=== PATIENT | male | born 1955 | race Two or more races ===

== ENCOUNTER 2017-10-06 15:30 | Emergency (ER) | payer OTHER ==
[~2017-10-06] VITALS: Ht 170.2 cm; Wt 81.6 kg
[2017-10-06] MEDS ORDERED: ASPirin 81 mg TAB PO ONE (17:30)
[2017-10-06 18:43] LABS: Basophils # (auto) 0.1 uL; Basophils % (auto) 1.2 % (0.0-2.0); Eosinophils # (auto) 0.6 uL; Eosinophils % (auto) 6.5 % (0.0-7.0); Hematocrit 46.7 % (41.0-53.0); Hemoglobin 16.2 g/dL (13.5-17.5); Lymphocytes # (auto) 2.8 uL; Lymphocytes % (auto) 29.9 % (10.0-50.0); Mean Corpuscular Hemoglobin 32.9 pg (28.0-32.0); Mean Corpuscular Hgb Conc. 34.7 g/dL (32.0-36.0); Mean Corpuscular Volume 94.7 fL (80.0-100.0); Monocytes # (auto) 0.6 uL; Monocytes % (auto) 6.2 % (0.0-12.0); Neutrophils # (auto) 5.3 uL; Neutrophils % (auto) 56.2 % (37.0-80.0); Nucleated Red Blood Cells % 0.1 %; Platelet Count (auto) 157 10^3/uL (140-450); Red Blood Cells 4.93 10^6/uL (4.5-5.90); Red Cell Distribution Width 13.8 % (11.8-14.3); White Blood Cell 9.4 10^3/uL (4.4-10.8)
[2017-10-06 18:58] LABS: Alanine Aminotransferase 131 U/L (16-61); Albumin 4.2 g/dL (3.4-5.0); Alkaline Phosphatase 61 U/L (45-117); Anion Gap 11 (5-15); Aspartate Aminotransferase 64 U/L (15-37); BUN/Creatinine Ratio 21.6; Bilirubin, Total 0.8 mg/dL (0.2-1.0); Blood Urea Nitrogen 16 mg/dL (7-18); Calcium 9.2 mg/dL (8.5-10.1); Carbon Dioxide 22 mmol/L (21-32); Chloride 105 mmol/L (98-107); GFR African American 138 mL/min; GFR Non-African American 114 mL/min; Glucose 86 mg/dL (74-106); Magnesium 2.6 mg/dL (1.6-2.6); Potassium 3.9 mmol/L (3.5-5.1); Sodium 138 mmol/L (136-145); Total Protein 8.7 g/dL (6.4-8.2)
[2017-10-06 19:31] VITALS: BP 173/107
== END 2017-10-06 20:17 | disposition home or self-care (01) ==
LOC: ER 15:30
DX: R07.89 Other chest pain (principal); R42 Dizziness and giddiness; I10 Essential (primary) hypertension; F17.210 Nicotine dependence, cigarettes, uncomplicated; Z79.82 Long term (current) use of aspirin
CPT/HCPCS: 36415; 71045; 80053; 83735; 83880; 84484; 85025; 93005; 94761

== ENCOUNTER 2017-11-08 14:58 | Emergency (ER) | payer OTHER ==
[~2017-11-08] VITALS: Ht 170.2 cm; Wt 89.4 kg
[2017-11-08 15:46] LABS: Basophils # (auto) 0.1 uL; Basophils % (auto) 1.7 % (0.0-2.0); Eosinophils # (auto) 0.5 uL; Eosinophils % (auto) 6.1 % (0.0-7.0); Hematocrit 44.1 % (41.0-53.0); Hemoglobin 15.3 g/dL (13.5-17.5); Lymphocytes # (auto) 2.6 uL; Lymphocytes % (auto) 32.9 % (10.0-50.0); Mean Corpuscular Hemoglobin 32.6 pg (28.0-32.0); Mean Corpuscular Hgb Conc. 34.6 g/dL (32.0-36.0); Mean Corpuscular Volume 94.2 fL (80.0-100.0); Monocytes # (auto) 0.6 uL; Neutrophils # (auto) 4.1 uL; Neutrophils % (auto) 51.3 % (37.0-80.0); Nucleated Red Blood Cells % 0.2 %; Platelet Count (auto) 149 10^3/uL (140-450); Red Blood Cells 4.68 10^6/uL (4.5-5.90); Red Cell Distribution Width 13.9 % (11.8-14.3)
[2017-11-08 16:05] LABS: Albumin 3.8 g/dL (3.4-5.0); BUN/Creatinine Ratio 13.8; Bilirubin, Total 0.7 mg/dL (0.2-1.0); Calcium 9.3 mg/dL (8.5-10.1); Potassium 3.8 mmol/L (3.5-5.1); Total Protein 8.1 g/dL (6.4-8.2)
[2017-11-08 16:21] LABS: Magnesium 2.5 mg/dL (1.6-2.6)
[2017-11-08 16:31] LABS: INR 1.01 (0.9-1.15); Partial Thromboplastin Time 27.8 sec (22.64-33.71)
[2017-11-08 17:57] VITALS: BP 139/85
== END 2017-11-08 19:17 | disposition home or self-care (01) ==
LOC: ER 15:01
DX: R94.5 Abnormal results of liver function studies (principal); I10 Essential (primary) hypertension; G89.29 Other chronic pain; M54.9 Dorsalgia, unspecified; F17.210 Nicotine dependence, cigarettes, uncomplicated; Z01.83 Encounter for blood typing
CPT/HCPCS: 36415; 80053; 82150; 83690; 83735; 85025; 85610; 85730

== ENCOUNTER 2017-12-24 17:36 | Emergency (ER) | payer OTHER, MEDICAID ==
[~2017-12-24] VITALS: Ht 170.2 cm; Wt 86.2 kg
[2017-12-24 17:52] VITALS: BP 130/70
[2017-12-24] MEDS ORDERED: IBUPROFEN 800 MG TAB PO ONE (19:15)
== END 2017-12-24 23:35 | disposition left against medical advice (07) ==
LOC: ER 17:37
DX: M79.674 Pain in right toe(s) (principal); Z53.21 Procedure and treatment not carried out due to patient leaving prior to being seen by health care provider
CPT/HCPCS: 73660

== ENCOUNTER 2019-02-01 15:16 | Emergency (ER) | payer OTHER, MEDICAID ==
[~2019-02-01] VITALS: Ht 170.2 cm; Wt 81.6 kg
[2019-02-01 15:29] VITALS: BP 174/82
[2019-02-01] MEDS ORDERED: BACITRACIN TOP OINT 1 UD PKG TOP ONE (19:45)
[2019-02-01] MEDS ORDERED: LIDOCAINE 1% HCL (LOCAL ANESTH.) INJ 20ML MDV IJ ONE (19:45)
[2019-02-01] MEDS ORDERED: TETANUS-DIPTH-ACEL PERTUSSIS 0.5ML SYRG IM ONE (21:15)
[2019-02-01] MEDS ORDERED: ACETAMINOPHEN/CODEINE#3 (300/30mg) TAB PO ONE (21:15)
[2019-02-01] MEDS ORDERED: SODIUM BICARBONATE 8.4% INJ 50ML SYRINGE ONE ×2 (23:27→23:49)
[2019-02-01] MEDS ORDERED: THIAMINE 100mg/ml INJ (200mg/2ml VIAL) ONE (23:31)
== END 2019-02-01 21:28 | disposition home or self-care (01) ==
LOC: ER 15:21
DX: S61.011A Laceration without foreign body of right thumb without damage to nail, initial encounter (principal); I10 Essential (primary) hypertension; F17.210 Nicotine dependence, cigarettes, uncomplicated; W26.8XXA Contact with other sharp object(s), not elsewhere classified, initial encounter; Y93.89 Activity, other specified; Y92.89 Other specified places as the place of occurrence of the external cause; Y99.8 Other external cause status
CPT/HCPCS: 12001; 90471; 90715; 99283; J2001

== ENCOUNTER 2019-02-02 18:21 | Emergency (ER) | payer OTHER, MEDICAID ==
[~2019-02-02] VITALS: Ht 170.2 cm; Wt 81.6 kg
[2019-02-02 18:45] VITALS: BP 141/81
[2019-02-02] MEDS ORDERED: ACETAMINOPHEN/CODEINE#3 (300/30mg) TAB PO ONE (19:45)
== END 2019-02-02 20:36 | disposition home or self-care (01) ==
LOC: ER 18:21
DX: S62.524D Nondisplaced fracture of distal phalanx of right thumb, subsequent encounter for fracture with routine healing (principal); F17.210 Nicotine dependence, cigarettes, uncomplicated; X58.XXXD Exposure to other specified factors, subsequent encounter
CPT/HCPCS: 29130; 73140

== ENCOUNTER 2019-06-03 14:46 | Emergency (ER) | payer OTHER, MEDICAID ==
[~2019-06-03] VITALS: Ht 170.2 cm; Wt 88.5 kg
[2019-06-03 15:14] VITALS: BP 138/84
[2019-06-03] MEDS ORDERED: TETRACAINE HCL 0.5% OPTH(EYE) SOLN 4ML ONE (16:13)
[2019-06-03] MEDS ORDERED: TETRACAINE HCL 0.5% OPTH(EYE) SOLN 4ML EACHEYE ONE (16:15)
== END 2019-06-03 16:41 | disposition home or self-care (01) ==
LOC: ER 14:48
DX: T15.02XA Foreign body in cornea, left eye, initial encounter (principal); I10 Essential (primary) hypertension; F17.210 Nicotine dependence, cigarettes, uncomplicated; X58.XXXA Exposure to other specified factors, initial encounter; Y93.89 Activity, other specified; Y92.89 Other specified places as the place of occurrence of the external cause; Y99.8 Other external cause status
CPT/HCPCS: 65220

== ENCOUNTER 2022-07-10 07:34 | Emergency (ER) | payer OTHER, MEDICAID ==
[~2022-07-10] VITALS: Ht 170.2 cm; Wt 90.0 kg
[2022-07-10] MEDS ORDERED: SODIUM CHLORIDE 0.9% 1,000 ML IV ONE ×2 (08:00)
[2022-07-10] MEDS ORDERED: IPRATROPIUM BROM 0.5 MG/2.5ML INH SOL NEB ONE (08:00)
[2022-07-10] MEDS ORDERED: ALBUTEROL SULF 2.5 MG/0.5ML(0.5%) NEB SOLN NEB ONE (08:00)
[2022-07-10] MEDS ORDERED: methylPREDNISolone SOD SUCC 125 MG/2 ML VL IV ONE (08:00)
[2022-07-10 08:25] LABS: Basophils # (auto) 0 10 ^3/uL (0-0.2); Basophils % (auto) 0.5 % (0.0-2.0); Eosinophils # (auto) 1.2 10 ^3/uL (0-0.8); Eosinophils % (auto) 12.4 % (0.0-7.0); Hematocrit 49.5 % (41.0-53.0); Hemoglobin 16.6 g/dL (13.5-17.5); Lymphocytes % (auto) 20.9 % (10.0-50.0); Mean Corpuscular Hemoglobin 31.4 pg (28.0-32.0); Mean Corpuscular Hgb Conc. 33.5 g/dL (32.0-36.0); Mean Corpuscular Volume 93.8 fL (80.0-100.0); Monocytes # (auto) 0.6 10 ^3/uL (0-1.3); Monocytes % (auto) 6.6 % (0.0-12.0); Neutrophils # (auto) 5.6 10 ^3/uL (1.6-8.6); Neutrophils % (auto) 59.6 % (37.0-80.0); Red Blood Cells 5.28 10^6/uL (4.5-5.90); Red Cell Distribution Width 13.8 % (11.8-14.3); White Blood Cell 9.3 10^3/uL (4.4-10.8)
[2022-07-10 09:00] LABS: Albumin 4.1 g/dL (3.4-5.0); BUN/Creatinine Ratio 13.8; Bilirubin, Total 0.7 mg/dL (0.2-1.0); Calcium 9.5 mg/dL (8.5-10.1); Magnesium 2.4 mg/dL (1.6-2.6); Potassium 4.4 mmol/L (3.5-5.1)
[2022-07-10 10:50] VITALS: BP 151/79
[2022-07-10] MEDS ORDERED: DEXT1SYP9 PO ×2 (10:53→11:03)
[2022-07-10] MEDS ORDERED: PRED20TA2 PO ×2 (10:53→11:03)
[2022-07-10] MEDS ORDERED: AZIT500T PO ×2 (10:53→11:03)
[2022-07-10] MEDS ORDERED: ALBUAER3 IN (11:03)
== END 2022-07-10 11:15 | disposition home or self-care (01) ==
LOC: ER 07:34
DX: J44.1 Chronic obstructive pulmonary disease with (acute) exacerbation (principal); F17.210 Nicotine dependence, cigarettes, uncomplicated; E11.9 Type 2 diabetes mellitus without complications; I10 Essential (primary) hypertension
CPT/HCPCS: 36415; 71046; 80053; 83735; 85025; 93005; 94640; 96361; 96374; 99285; J2930; J7030; J7644

== ENCOUNTER 2023-06-24 13:04 | Emergency (ER) | payer OTHER, MEDICAID ==
[~2023-06-24] VITALS: Ht 170.2 cm; Wt 86.8 kg
[~2023-06-24 13:04] MED LIST: ALBUAER3 IN; AZIT500T PO; DEXT1SYP9 PO; PRED20TA2 PO
[2023-06-24 13:58] LABS: Basophils # (auto) 0 10 ^3/uL (0-0.2); Basophils % (auto) 0.6 % (0.0-2.0); Eosinophils # (auto) 0 10 ^3/uL (0-0.8); Eosinophils % (auto) 0.6 % (0.0-7.0); Hemoglobin 16.5 g/dL (13.5-17.5); Lymphocytes # (auto) 1.2 10 ^3/uL (0.4-5.4); Lymphocytes % (auto) 14.5 % (10.0-50.0); Mean Corpuscular Hemoglobin 32.8 pg (28.0-32.0); Mean Corpuscular Hgb Conc. 34.4 g/dL (32.0-36.0); Mean Corpuscular Volume 95.3 fL (80.0-100.0); Monocytes # (auto) 0.3 10 ^3/uL (0-1.3); Monocytes % (auto) 3.3 % (0.0-12.0); Neutrophils # (auto) 6.6 10 ^3/uL (1.6-8.6); Nucleated Red Blood Cells % 0.1 %; Red Blood Cells 5.03 10^6/uL (4.5-5.90); White Blood Cell 8.2 10^3/uL (4.4-10.8)
[2023-06-24 14:30] LABS: Urine Bacteria NONE SEEN /hpf (None Seen); Urine Blood Negative /uL (Negative); Urine Clarity Clear (Clear); Urine Color Colorless (Yellow); Urine Protein, UAD Negative (Negative); Urine Specific Gravity 1.021 (1.001-1.035); Urine Urobilinogen Normal (Negative); Urine WBC <1 /hpf (0 - 3)
[2023-06-24 14:34] LABS: Alanine Aminotransferase 53 U/L (7-40); Albumin 5.1 g/dL (3.2-4.8); Alkaline Phosphatase 57 U/L (46-116); Anion Gap 6 (5-15); Aspartate Aminotransferase 27 U/L (13-40); BUN/Creatinine Ratio 12.6 (10.0-20.0); Bilirubin, Total 0.6 mg/dL (0.2-1.0); Blood Urea Nitrogen 12 mg/dL (9-23); Calcium 10.2 mg/dL (8.7-10.4); Carbon Dioxide 25 mmol/L (20-30); Chloride 107 mmol/L (98-107); Glucose 114 mg/dL (74-106); Magnesium 2.3 mg/dL (1.6-2.6); Potassium 4.6 mmol/L (3.5-5.1); Sodium 138 mmol/L (136-145); Total Protein 8.1 g/dL (5.7-8.2)
[2023-06-24 18:18] VITALS: BP 161/83; PULSE 79; RESP 19; O2SAT 97
== END 2023-06-24 18:21 | disposition home or self-care (01) ==
LOC: ER 13:04
DX: R06.00 Dyspnea, unspecified (principal); I10 Essential (primary) hypertension; E11.9 Type 2 diabetes mellitus without complications; F17.210 Nicotine dependence, cigarettes, uncomplicated; Z98.890 Other specified postprocedural states
CPT/HCPCS: 36415; 71046; 80053; 81001; 83735; 83880; 84484; 85025; 85379; 93005

== ENCOUNTER 2023-07-09 08:02 | Emergency (ER) | payer OTHER, MEDICAID ==
[~2023-07-09] VITALS: Ht 170.2 cm; Wt 89.1 kg
[2023-07-09 08:45] VITALS: BP 158/90; PULSE 75
[2023-07-09] MEDS ORDERED: ALBUTEROL MEDNEB 2.5 mg/3ml NEB NEB ONE (09:15)
[2023-07-09] MEDS ORDERED: IPRATROPIUM BROM 0.5 MG/2.5ML INH SOL NEB ONE (09:15)
[2023-07-09 09:31] VITALS: RESP 18; O2SAT 96
[2023-07-09] MEDS ORDERED: LEVO500T91 PO (09:53)
[2023-07-09] MEDS ORDERED: PROM1SOL4 PO (09:53)
[2023-07-09] MEDS ORDERED: ALBU108A5 IN (09:53)
== END 2023-07-09 09:57 | disposition home or self-care (01) ==
LOC: ER 08:02
DX: J20.9 Acute bronchitis, unspecified (principal); E11.9 Type 2 diabetes mellitus without complications; I10 Essential (primary) hypertension; F17.210 Nicotine dependence, cigarettes, uncomplicated
CPT/HCPCS: 71045; 94640; 99283; J7644

== ENCOUNTER 2023-07-29 09:35 | Emergency (ER) | payer OTHER, MEDICAID ==
[~2023-07-29] VITALS: Ht 170.2 cm; Wt 89.3 kg
[~2023-07-29 09:35] MED LIST changes: +ALBU108A5 IN; +LEVO500T91 PO; +PROM1SOL4 PO
[2023-07-29 11:28] VITALS: BP 139/82; PULSE 74; RESP 18; TEMP 97.6; O2SAT 98
[2023-07-29] MEDS ORDERED: OMEP20TA85 PO (12:05)
== END 2023-07-29 12:17 | disposition home or self-care (01) ==
LOC: ER 09:35
DX: K21.9 Gastro-esophageal reflux disease without esophagitis (principal); E11.9 Type 2 diabetes mellitus without complications; I10 Essential (primary) hypertension; F17.210 Nicotine dependence, cigarettes, uncomplicated

== ENCOUNTER 2023-08-04 13:55 | Emergency (ER) | payer OTHER, MEDICAID ==
[~2023-08-04] VITALS: Ht 170.2 cm; Wt 89.7 kg
[~2023-08-04 13:55] MED LIST changes: +OMEP20TA85 PO
[2023-08-04 14:50] LABS: Basophils # (auto) 0.1 10 ^3/uL (0-0.2); Basophils % (auto) 0.8 % (0.0-2.0); Eosinophils # (auto) 0.7 10 ^3/uL (0-0.8); Eosinophils % (auto) 9.5 % (0.0-7.0); Hematocrit 47.5 % (41.0-53.0); Hemoglobin 16.3 g/dL (13.5-17.5); Lymphocytes # (auto) 2.3 10 ^3/uL (0.4-5.4); Lymphocytes % (auto) 31.8 % (10.0-50.0); Mean Corpuscular Hemoglobin 32.1 pg (28.0-32.0); Mean Corpuscular Hgb Conc. 34.2 g/dL (32.0-36.0); Mean Corpuscular Volume 93.7 fL (80.0-100.0); Monocytes # (auto) 0.5 10 ^3/uL (0-1.3); Monocytes % (auto) 7.4 % (0.0-12.0); Neutrophils # (auto) 3.7 10 ^3/uL (1.6-8.6); Neutrophils % (auto) 50.5 % (37.0-80.0); Nucleated Red Blood Cells % 0.3 %; Red Blood Cells 5.07 10^6/uL (4.5-5.90); Red Cell Distribution Width 13.6 % (11.8-14.3); White Blood Cell 7.3 10^3/uL (4.4-10.8)
[2023-08-04 15:08] LABS: Alanine Aminotransferase 49 U/L (7-40); Albumin 4.8 g/dL (3.2-4.8); Alkaline Phosphatase 57 U/L (46-116); Anion Gap 6 (5-15); Aspartate Aminotransferase 26 U/L (13-40); Bilirubin, Total 0.6 mg/dL (0.2-1.0); Blood Urea Nitrogen 14 mg/dL (9-23); Calcium 9.2 mg/dL (8.7-10.4); Carbon Dioxide 25 mmol/L (20-30); Chloride 107 mmol/L (98-107); Glucose 100 mg/dL (74-106); Potassium 4.5 mmol/L (3.5-5.1); Sodium 138 mmol/L (136-145)
[2023-08-04] MEDS ORDERED: AZIT1POW PO (15:31)
[2023-08-04 16:12] VITALS: BP 142/87; PULSE 78; RESP 17; TEMP 97.7; O2SAT 97
== END 2023-08-04 16:14 | disposition home or self-care (01) ==
LOC: ER 13:55
DX: J20.9 Acute bronchitis, unspecified (principal); I10 Essential (primary) hypertension; E11.9 Type 2 diabetes mellitus without complications; K21.9 Gastro-esophageal reflux disease without esophagitis; F17.210 Nicotine dependence, cigarettes, uncomplicated; Z79.2 Long term (current) use of antibiotics; Z79.899 Other long term (current) drug therapy
CPT/HCPCS: 36415; 71046; 80053; 84484; 85025; 85379; 93005

== ENCOUNTER 2025-04-05 05:51 | Inpatient (IN) | payer MEDICAID, OTHER ==
[~2025-04-05] VITALS: Ht 170.2 cm; Wt 87.6 kg
[~2025-04-05 05:51] MED LIST changes: +AZIT1POW PO
--- NOTE | 2025-04-05 07:00 | ED.PDOC ---
GI ASSESSMENT HPI Comments 69 y/o M, with PMHx of DM, GERD, and HTN presents to the ED for CC of abdominal pain. Patient states, he has been experiencing diffuse abdominal pain onset, yesterday evening (04/04/25). Patient reports, symptoms began shortly after finishing his dinner. Patient states, his LMB to have been this morning (04/05/25) and have only been a small amount. Patient denies fever, melena, nausea, vomiting, or diarrhea. No other symptoms or modifying factors present at this time. Chief Complaint: Abdominal Pain Time Seen by MD: 06:50 Primary Care Provider: TRAVIS Reviewed Notes: Nurses Notes, Medications, Allergies Allergies: Coded Allergies: NO KNOWN ALLERGIES (Unverified , 10/06/17) Home Meds Active Scripts Azithromycin (Zithromax) 1 Gm Pow, 1 PACK PO ONCE, #1 PACK Prov:ANIYA WOLFF MD 08/04/23 Omeprazole (HM OMEPRAZOLE) 20 Mg Tab, 20 MG PO BID for 60 Days, #120 TAB 0 Refills Prov:FRANCISCO NGUYEN NP 07/29/23 Albuterol Sulfate (Albuterol Sulfate Hfa) 108 Mcg/Act Aer, 108 MCG IN TID, #90 AER Prov:LEO BROWN 07/09/23 Promethazine-Dm (Promethazine Dm 6.25-15 mg/5Ml) 1 Jocelyne Jocelyne, 5 ML PO TID, #180 ML Prov:LEO BROWN 07/09/23 Levofloxacin Hemihydrate (LEVAQUIN 500 MG) 500 Mg Tab, 1 TAB PO DAILY, #10 TAB Prov:LEO BROWN 07/09/23 Albuterol Sulfate (VENTOLIN MDI) 90 Mcg Ih, 90 MCG IN TID for 30 Days, #1 INH Prov:SCAR CORDERO MD 07/10/22 Dextromethorphan-Guaifenesin (Robitussin-Dm) 10 Ml Sr, 10 ML PO TID for 10 Days, #300 SYP Prov:SCAR CORDERO MD 07/10/22 Prednisone (Prednisone) 20 Mg Tab, 20 MG PO BID for 5 Days, #10 MG Prov:SCAR CORDERO MD 07/10/22 Azithromycin (Zithromax) 500 Mg Tab, 1 TAB PO DAILY for 5 Days, #5 TAB Prov:SCAR CORDERO MD 07/10/22 Information Source: Patient Mode of Arrival: Ambulatory Timing: Days Duration: Since onset Prehospital treatment: None Quality: None Vomitus: None Stool: Impaction Severity: Moderate Recent: None Recent Hx of: None Pain Location: Diffuse Modifying Factors: Nothing Associated sign and symptoms: Abdominal Pain Past Medical History PAST MEDICAL HISTORY: DM, GERD, HTN Family History Family History: Reviewed,noncontributory to illness, No family hx of HTN Social History Smoker: Cigarettes, Less Than 1 Pack/Day Alcohol: Occasionally Drugs: Denies Drug Use Lives In: Home Constitutional: denies: chills, diaphoresis, fatigue, fever, malaise, sweats, weakness, others EENTM: denies: blurred vision, double vision, ear bleeding, ear discharge, ear drainage, ear pain, ear ringing, eye pain, eye redness, hearing loss, mouth pain, mouth swelling, nasal discharge, nose bleeding, nose congestion, nose pain, photophobia, tearing, throat pain, throat swelling, voice changes, others Respiratory: denies: cough, hemoptysis, orthopnea, SOB at rest, shortness of breath, SOB with excertion, stridor, wheezing, others Cardiovascular: denies: chest pain, dizzy spells, diaphoresis, Dyspnea on exertion, edema, irregular heart beat, left arm pain, lightheadedness, palpitations, PND, syncope, others Gastrointestinal: reports: abdominal pain; denies: abdomen distended, blood streaked bowels, constipated, diarrhea, dysphagia, difficulty swallowing, hematemesis, melena, nausea, poor appetite, poor fluid intake, rectal bleeding, rectal pain, vomiting, others Genitourinary: denies: burning, dysuria, flank pain, frequency, hematuria, incontinence, penile discharge, penile sore, pain, testicle pain, testicle swelling, urgency, others Neurological: denies: dizziness, fainting, headache, left sided numbness, left sided weakness, numbness, paresthesia, pre-existing deficit, right sided numbness, right sided weakness, seizure, speech problems, tingling, tremors, weakness, others Musculoskeletal: denies: back pain, gout, joint pain, joint swelling, muscle pain, muscle stiffness, neck pain, others Integumetry: denies: bruises, change in color, change in hair/nails, dryness, laceration, lesions, lumps, rash, wounds, others Allergic/Immunocompromised: denies: Difficulty Healing, Frequent Infections, Hives, Itching, others Hematologic/Lymphatic: denies: anemia, blood clots, easy bleeding, easy bruising, swollen glands, others Endocrine: denies: excessive hunger, excessive sweating, excessive thirst, excessive urination, flushing, intolerance to cold, intolerance to heat, unexp lained weight gain, unexplained weight loss, others Psychiatric: denies: anxiety, bipolar disorder, depression, hopeless, panic disorder, schizophrenia, sleepless, suicidal, others All Other Systems: Reviewed and Negative Physical Exam General Appearance: Moderate Distress HEENT: Normal ENT Inspection, Pharynx Normal, TMs Normal Neck: Full Range of Motion, Non-Tender, Normal, Normal Inspection Respiratory: Chest Non-Tender, Lungs Clear, No Accessory Muscle Use, No Respiratory Distress, Normal Breath Sounds Cardiovascular: No Edema, No JVD, No Murmur, No Gallop, Normal Peripheral Pulses, Regular Rate/Rhythm Breast Exam: Deferred Gastrointestinal: Diffuse Genitalia: Deferred Pelvic: Deferred Rectal: Deferred Extremities: No calf tenderness, Normal capillary refill, Normal inspection, Normal range of motion, Non-tender, No pedal edema Musculoskeletal : Apperance: Normal Neurologic: Alert, 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 Was a procedure done?: No GI differential Dx Differential Diagnosis: Appendicitis, Constipation, Esophagitis, Gastritis/PUD, Gastroenteritis, Electrolyte Imbalance, Food Poisoning, Bacterial, Viral, Other (colitis) X-Ray, Labs, Meds, VS Vital Signs Date Time Temp Pulse Resp B/P (MAP) Pulse Ox O2 Delivery O2 Flow Rate FiO2 04/05/25 11:15 Room Air* 0 21 04/05/25 09:33 84 18 95 Room Air 04/05/25 09:33 98.6 84 16 135/84 (101) 95 98.6 04/05/25 05:58 98.3 81 20 143/80 95 98.3 Lab Test 04/05/25 08:59 04/05/25 06:54 04/05/25 06:38 Range/Units Lactic Acid Level 1.0 0.4-2.0 mmol/L Urine Color Light-yellow Yellow Urine Clarity Clear Clear Urine pH 7.0 5.0-9.0 Urine Specific [place] 1.022 1.001-1.035 Urine Protein Negative Negative Urine Ketones Negative Negative Urine Blood Negative Negative /uL Urine Nitrite Negative Negative Urine Bilirubin Negative Negative Urine Urobilinogen Normal Negative mg/dL Urine Leukocyte Esterase Negative Negative /uL Urine RBC 1 0 - 3 /hpf Urine Microscopic WBC < 1 0-3 /HPF Urine Squamous Epithelial Cells Few <5 /hpf Urine Bacteria None seen None Seen /hpf Urine Glucose 4+ H Normal mg/dL White Blood Count 15.5 H 4.4-10.8 10^3/uL Red Blood Count 5.10 4.5-5.90 10^6/uL Hemoglobin 16.9 13.5-17.5 g/dL Hematocrit 47.4 41.0-53.0 % Mean Corpuscular Volume 92.9 80.0-100.0 fL Mean Corpuscular Hemoglobin 33.2 H 28.0-32.0 pg Mean Corpuscular Hemoglobin Concent 35.7 32.0-36.0 g/dL Red Cell Distribution Width 13.6 11.8-14.3 % Platelet Count 179 140-450 10^3/uL Mean Platelet Volume 8.7 6.9-10.8 fL Neutrophils (%) (Auto) 80.7 H 37.0-80.0 % Lymphocytes (%) (Auto) 11.4 10.0-50.0 % Monocytes (%) (Auto) 5.6 0.0-12.0 % Eosinophils (%) (Auto) 1.4 0.0-7.0 % Basophils (%) (Auto) 0.9 0.0-2.0 % Neutrophils # (Auto) 12.5 H 1.6-8.6 10 ^3/uL Lymphocytes # (Auto) 1.8 0.4-5.4 10 ^3/uL Monocytes # (Auto) 0.9 0-1.3 10 ^3/uL Eosinophils # (Auto) 0.2 0-0.8 10 ^3/uL Basophils # (Auto) 0.1 0-0.2 10 ^3/uL Nucleated Red Blood Cells 0.1 % Sodium Level 140 136-145 mmol/L Potassium Level 4.1 3.5-5.1 mmol/L Chloride Level 107 98-107 mmol/L Carbon Dioxide Level 25 20-31 mmol/L Anion Gap 8 5-15 Blood Urea Nitrogen 10 9-23 mg/dL Creatinine 0.84 0.700-1.30 mg/dL Glomerular Filtration Rate Calc 94 >90 mL/min BUN/Creatinine Ratio 11.9 10.0-20.0 Serum Glucose 109 H 74-106 mg/dL Calcium Level 9.7 8.7-10.4 mg/dL Current Medications Medications (Trade) Dose Ordered Sig/Sarah Route Start Time Stop Time Status Last Admin Cefazolin Sodium 50 ml @ 100 mls/hr ONCE ONCE IV 04/05/25 08:45 04/05/25 09:14 DC 04/05/25 11:15 Metronidazole 100 ml @ 100 mls/hr ONCE ONCE IV 04/05/25 08:45 04/05/25 09:44 DC 04/05/25 09:56 [place] [id number] Ph: [phone] DIAGNOSTIC IMAGING Diagnostic Imaging Report : [id number] Signed PATIENT: SIMIN FOFANACCT: [id number] UNIT: [id number] : 1955 LOC: ER ROOM / BED: / AGE / SEX: 69 / M ADM STATUS: REG ER SERVICE [id number] ORDERING PHYSICIAN: MARIA DOLORES PUGH MD PROCEDURE(s): ABPL - CT AB PEL WO CON-NO ORAL OR IV REASON: distended ORDER NUMBER(s): [id number], ACCESSION NUMBER(s): [id number] Exam: CT CT AB PEL WO CON-NO ORAL OR IV History: Distended Comparison Study: None Technique: Multidetector spiral CT of the abdomen and pelvis was performed from lung bases to pubic symphysis. Imaging was performed without intravenous contrast. Coronal and sagittal multiplanar reformats were obtained from the axial data set by the technologist. Radiation Dose : 1. Abdomen/Pelvis: CTDIvol 14.95 mGy, DLP 3.92 mGy*cm. Findings: Evaluation of vasculature and solid organs is limited due to lack of intravenous contrast use. Lung Bases: Lung bases are clear. Visualized portions of the heart and pericardium are unremarkable. Liver: The liver is normal in size. No focal lesions. Diffusely hypoattenuating liver parenchyma consistent with hepatic steatosis. Gallbladder and Biliary Tree: The gallbladder is unremarkable. No intrahepatic or extrahepatic biliary ductal dilatation. Spleen: Unremarkable Pancreas: The pancreas is grossly unremarkable. Adrenal Glands: Unremarkable Kidneys: There is a 5 mm hyperdense focus in the upper pole of the left kidney which may represent proteinaceous or hemorrhagic cyst. No intrarenal calculi. No hydronephrosis. GI tract: The stomach is grossly normal in appearance. No evidence of small bowel wall thickening or abnormal dilatation to suggest bowel obstruction. The colon is unremarkable. The tip of the appendix is dilated measuring 1.4 cm in diameter with periappendiceal fat stranding. Small locule of air in the appendix lumen. No fluid collection. Peritoneum/mesentery/retroperitoneum. No evidence of free intraperitoneal air. No ascites. No evidence of suspicious lymphadenopathy. Abdominal Wall: Unremarkable. Vasculature: The visualized abdominal aorta is normal in size and caliber. Evaluation of abdominal and pelvic vessels is limited due to lack of intravenous contrast. Urinary Bladder: Grossly unremarkable for degree of distention. Pelvic Organs: Unremarkable Musculoskeletal: No aggressive focal bony lesions, acute fractures or dislocation. Multilevel lumbar spondylosis. There is a metallic density medial to the right acetabulum. IMPRESSION: 1. Acute tip appendicitis. No fluid collection or pneumoperitoneum. 2. Hepatic steatosis. ATED BY: BRIGIDA KAUFMAN MD DICTATED DATE/TIME: 04/05/25816 SIGNED BY: BRIGIDA KAUFMAN MD SIGNED DATE/TIME: 04/05/25816 CC: Patient alert. Complaining of abdominal pain. Vitals stable. Answering questions. Ambulating. Abdomen is tender. CT scan of the abdomen reviewed does show a appendicitis. Was given Ancef. Was given Flagyl. Was given pain medication. Spoke with the surgeon. Explained to the patient. Continue to monitor. Time of 1ST Reevaluation: 07:20 Reevaluation 1ST: Unchanged Patient Education/Counseling: Diagnosis, Treatment Family Education/Counseling: No Family Present SEPSIS Sepsis Screen Date sepsis recognized/suspect: Apr 05, 2025 Time Sepsis recognized/suspect: 0603 Recent Procedure: No On Antibiotic Therapy: No Respiratory Rate >20: No Heart Rate >90: No Temp<36 C (96.8 F) or >38.3 C: No SBP <90 or MAP <65 mmHG: No New Acute Mental Status Change: No Is the patient on CPAP, BIPAP,: No Physician Orders Ct Ab Pel Wo Con-No Oral Or Iv (04/05/25 06:34) Blood Culture (04/05/25 08:37) * Surgical Consult (04/05/25 ) Chest Xray 1 View (04/05/25 13:56) Electrocardigram (04/05/25 13:56) Vital Signs Date Time Temp Pulse Resp B/P (MAP) Pulse Ox O2 Delivery O2 Flow Rate FiO2 04/05/25 11:15 Room Air* 0 21 04/05/25 09:33 84 18 95 Room Air 04/05/25 09:33 98.6 84 16 135/84 (101) 95 98.6 04/05/25 05:58 98.3 81 20 143/80 95 98.3 Laboratory Tests Test 04/05/25 06:38 04/05/25 08:59 White Blood Count 15.5 10^3/uL (4.4-10.8) H Lactic Acid Level 1.0 mmol/L (0.4-2.0) Medications Medications Dose Ordered Sig/Sarah Route Start Time Stop Time Status Last Admin Dose Admin Cefazolin Sodium 50 ml @ 100 mls/hr ONCE ONCE IV 04/05/25 08:45 04/05/25 09:14 DC 04/05/25 11:15 Metronidazole 100 ml @ 100 mls/hr ONCE ONCE IV 04/05/25 08:45 04/05/25 09:44 DC 04/05/25 09:56 Departure 1 Departure Time of Disposition: 17:05 Impression: Primary Impression: Acute appendicitis Qualified Codes: K35.80 - Unspecified acute appendicitis Disposition: ADMITTED INPATIENT Admit to: Med Surg Condition: Guarded Critical Care Note Critical Care Time?: Yes (90 min-critical care time only) Stability Stability form required: No Heart Score Heart Score: Heart Score Response (Comments) Value History N/A 0 EKG N/A 0 Age N/A 0 Risk Factors N/A 0 Troponin N/A 0 Total 0 I personally scribed for MARIA DOLORES PUGH MD ([email or web address]) on 04/05/25 at 07:00. Electronically submitted by María Stevens [email or web address]). I personally scribed for MARIA DOLORES PUGH MD ([email or web address]) on 04/05/25 at 08:32. Electronically submitted by María Stevens [email or web address]). MARIA DOLORES PUGH MD Apr 05, 2025 07:00
[2025-04-05 07:21] LABS: Chloride 107 mmol/L (98-107); Potassium 4.1 mmol/L (3.5-5.1); Sodium 140 mmol/L (136-145)
[2025-04-05 07:22] LABS: Anion Gap 8 (5-15); Calcium 9.7 mg/dL (8.7-10.4); Carbon Dioxide 25 mmol/L (20-31)
[2025-04-05 07:27] LABS: BUN/Creatinine Ratio 11.9 (10.0-20.0); Blood Urea Nitrogen 10 mg/dL (9-23); Glucose 109 mg/dL (74-106)
[2025-04-05 07:33] LABS: Hematocrit 47.4 % (41.0-53.0); Hemoglobin 16.9 g/dL (13.5-17.5); Mean Corpuscular Hemoglobin 33.2 pg (28.0-32.0); Mean Corpuscular Volume 92.9 fL (80.0-100.0); Nucleated Red Blood Cells % 0.1 %
--- NOTE | 2025-04-05 08:20 | DVH ---
Exam: CT CT AB PEL WO CON-NO ORAL OR IV History: Distended Comparison Study: None Technique: Multidetector spiral CT of the abdomen and pelvis was performed from lung bases to pubic s ymphysis. Imaging was performed without intravenous contrast. Coronal and sagittal multiplanar reform ats were obtained from the axial data set by the technologist. Radiation Dose : 1. Abdomen/Pelvis: CTDIvol 14.95 mGy, DLP 3.92 mGy*cm. Findings: Evaluation of vasculature and solid organs is limited due to lack of intravenous contrast use. Lung Bases: Lung bases are clear. Visualized portions of the heart and pericardium are unremarkable. Liver: The liver is normal in size. No focal lesions. Diffusely hypoattenuating liver parenchyma con sistent with hepatic steatosis. Gallbladder and Biliary Tree: The gallbladder is unremarkable. No intrahepatic or extrahepatic biliar y ductal dilatation. Spleen: Unremarkable Pancreas: The pancreas is grossly unremarkable. Adrenal Glands: Unremarkable Kidneys: There is a 5 mm hyperdense focus in the upper pole of the left kidney which may represent pr oteinaceous or hemorrhagic cyst. No intrarenal calculi. No hydronephrosis. GI tract: The stomach is grossly normal in appearance. No evidence of small bowel wall thickening or abnormal dilatation to suggest bowel obstruction. The colon is unremarkable. The tip of the appendix is dilated measuring 1.4 cm in diameter with periappendiceal fat stranding. Small locule of air in t he appendix lumen. No fluid collection. Peritoneum/mesentery/retroperitoneum. No evidence of free intraperitoneal air. No ascites. No evidenc e of suspicious lymphadenopathy. Abdominal Wall: Unremarkable. Vasculature: The visualized abdominal aorta is normal in size and caliber. Evaluation of abdominal a nd pelvic vessels is limited due to lack of intravenous contrast. Urinary Bladder: Grossly unremarkable for degree of distention. Pelvic Organs: Unremarkable Musculoskeletal: No aggressive focal bony lesions, acute fractures or dislocation. Multilevel lumbar spondylosis. There is a metallic density medial to the right acetabulum. IMPRESSION: 1. Acute tip appendicitis. No fluid collection or pneumoperitoneum. 2. Hepatic steatosis.
[2025-04-05 08:25] LABS: Urine Protein, UAD Negative (Negative)
[2025-04-05] MEDS: ceFAZolin 1GM/50ML 50 ML IV ONE (11:15)
[2025-04-05] MEDS ORDERED: ONDANSETRON HCL 4 MG/2 ML VIAL ONE ×2 (14:14→16:49)
[2025-04-05] MEDS ORDERED: ETOMIDATE (2MG/ML) 20ML VIAL IV ONE (14:14)
[2025-04-05] MEDS ORDERED: MIDAZOLAM HCL 2MG/2ML 2ml VIAL (1mg/ml) ONE (14:14)
[2025-04-05] MEDS ORDERED: fentaNYL CITRATE 100 MCG/2 ML VL ONE ×2 (14:14→16:18)
[2025-04-05] MEDS ORDERED: MORPHINE SULFATE INJ 2 MG/ml SYRG IV PRN ×2 (14:30)
[2025-04-05] MEDS ORDERED: NITROGLYCERIN 0.4 MG SL TAB SL PRN (14:30)
[2025-04-05] MEDS ORDERED: ONDANSETRON HCL 4 MG/2 ML VIAL IV PRN (14:30)
[2025-04-05] MEDS: SODIUM CHLORIDE 0.9% 1,000 ML IV ONE (14:38)
--- NOTE | 2025-04-05 14:44 | DVH ---
EXAM: XY CHEST XRAY 1 VIEW Indication: Pain Technique: Single frontal view of the chest was obtained Comparison: XY CHEST TWO VIEWS ROUTINE on DOS: 08/04/23, XY CHEST XRAY 1 VIEW on DOS: 07/09/23, XY CHES T TWO VIEWS ROUTINE on DOS: 06/24/23, EKG on DOS: 07/10/22, CHEST TWO VIEWS ROUTINE on DOS: 07/10/22 FINDINGS: Lines and Tubes: None Lungs: No focal consolidation. Pleura: No effusion. No pneumothorax. Cardiomediastinal contours: Unremarkable Bones: No acute osseous abnormality. IMPRESSION: No acute cardiopulmonary disease.
--- NOTE | 2025-04-05 14:55 | DVHINCON2 ---
Date of service: Apr 05, 2025 Allergies: Coded Allergies: NO KNOWN ALLERGIES (Unverified , 10/06/17) Home Meds Active Scripts Azithromycin (Zithromax) 1 Gm Pow, 1 PACK PO ONCE, #1 PACK Prov:ANIYA WOLFF MD 08/04/23 Omeprazole (HM OMEPRAZOLE) 20 Mg Tab, 20 MG PO BID for 60 Days, #120 TAB 0 Refills Prov:FRANCISCO NGUYEN NP 07/29/23 Albuterol Sulfate (Albuterol Sulfate Hfa) 108 Mcg/Act Aer, 108 MCG IN TID, #90 AER Prov:LEO BROWN 07/09/23 Promethazine-Dm (Promethazine Dm 6.25-15 mg/5Ml) 1 Jocelyne Jocelyne, 5 ML PO TID, #180 ML Prov:LEO BROWN 07/09/23 Levofloxacin Hemihydrate (LEVAQUIN 500 MG) 500 Mg Tab, 1 TAB PO DAILY, #10 TAB Prov:LEO BROWN 07/09/23 Albuterol Sulfate (VENTOLIN MDI) 90 Mcg Ih, 90 MCG IN TID for 30 Days, #1 INH Prov:SCAR CORDERO MD 07/10/22 Dextromethorphan-Guaifenesin (Robitussin-Dm) 10 Ml Sr, 10 ML PO TID for 10 Days, #300 SYP Prov:SCAR CORDERO MD 07/10/22 Prednisone (Prednisone) 20 Mg Tab, 20 MG PO BID for 5 Days, #10 MG Prov:SCAR CORDERO MD 07/10/22 Azithromycin (Zithromax) 500 Mg Tab, 1 TAB PO DAILY for 5 Days, #5 TAB Prov:SCAR CORDERO MD 07/10/22 Current Medications Current Medications Medications (Trade) Dose Ordered Sig/Sarah Route PRN Reason Start Time Stop Time Status Last Admin Nitroglycerin (Ntrostat Sublingual) 0.4 mg Q5MINP PRN SL FOR CHEST PAIN 04/05/25 14:30 Morphine Sulfate 2 mg Q30M PRN IV FOR CHEST PAIN 04/05/25 14:30 Piperacillin Sod/ Tazobactam Sod 100 ml @ 100 mls/hr Q6HR IV 04/05/25 14:30 UNV Sodium Chloride 1,000 ml @ 100 mls/hr Q10H IV 04/05/25 14:30 Morphine Sulfate 2 mg Q4HP PRN IV pain 04/05/25 14:30 Ondansetron HCl (Zofran) 4 mg Q4HP PRN IV n/v 04/05/25 14:30 Vital Signs Vital Signs Date Time Temp Pulse Resp B/P (MAP) Pulse Ox O2 Delivery O2 Flow Rate FiO2 04/05/25 11:15 Room Air* 0 21 04/05/25 09:33 84 18 95 04/05/25 09:33 98.6 135/84 (101) 98.6 Labs/Diagnostic Data Labs Test 04/05/25 08:59 04/05/25 06:54 04/05/25 06:38 Range/Units Lactic Acid Level 1.0 0.4-2.0 mmol/L Urine Color Light-yellow Yellow Urine Clarity Clear Clear Urine pH 7.0 5.0-9.0 Urine Specific [place] 1.022 1.001-1.035 Urine Protein Negative Negative Urine Ketones Negative Negative Urine Blood Negative Negative /uL Urine Nitrite Negative Negative Urine Bilirubin Negative Negative Urine Urobilinogen Normal Negative mg/dL Urine Leukocyte Esterase Negative Negative /uL Urine RBC 1 0 - 3 /hpf Urine Microscopic WBC < 1 0-3 /HPF Urine Squamous Epithelial Cells Few <5 /hpf Urine Bacteria None seen None Seen /hpf Urine Glucose 4+ H Normal mg/dL White Blood Count 15.5 H 4.4-10.8 10^3/uL Red Blood Count 5.10 4.5-5.90 10^6/uL Hemoglobin 16.9 13.5-17.5 g/dL Hematocrit 47.4 41.0-53.0 % Mean Corpuscular Volume 92.9 80.0-100.0 fL Mean Corpuscular Hemoglobin 33.2 H 28.0-32.0 pg Mean Corpuscular Hemoglobin Concent 35.7 32.0-36.0 g/dL Red Cell Distribution Width 13.6 11.8-14.3 % Platelet Count 179 140-450 10^3/uL Mean Platelet Volume 8.7 6.9-10.8 fL Neutrophils (%) (Auto) 80.7 H 37.0-80.0 % Lymphocytes (%) (Auto) 11.4 10.0-50.0 % Monocytes (%) (Auto) 5.6 0.0-12.0 % Eosinophils (%) (Auto) 1.4 0.0-7.0 % Basophils (%) (Auto) 0.9 0.0-2.0 % Neutrophils # (Auto) 12.5 H 1.6-8.6 10 ^3/uL Lymphocytes # (Auto) 1.8 0.4-5.4 10 ^3/uL Monocytes # (Auto) 0.9 0-1.3 10 ^3/uL Eosinophils # (Auto) 0.2 0-0.8 10 ^3/uL Basophils # (Auto) 0.1 0-0.2 10 ^3/uL Nucleated Red Blood Cells 0.1 % Sodium Level 140 136-145 mmol/L Potassium Level 4.1 3.5-5.1 mmol/L Chloride Level 107 98-107 mmol/L Carbon Dioxide Level 25 20-31 mmol/L Anion Gap 8 5-15 Blood Urea Nitrogen 10 9-23 mg/dL Creatinine 0.84 0.700-1.30 mg/dL Glomerular Filtration Rate Calc 94 >90 mL/min BUN/Creatinine Ratio 11.9 10.0-20.0 Serum Glucose 109 H 74-106 mg/dL Calcium Level 9.7 8.7-10.4 mg/dL Assessment [id number] APPENDICITIS LAP/OPEN APPENDECTOMY Plan discussed with: Patient EDGARD BARTLETT MD Apr 05, 2025 14:55
--- NOTE | 2025-04-05 15:19 | DVHHP2 ---
Admitting Diagnosis: abd pain History of Present Illness HPI 69 M who comes to ER for abd pain. His WBC was 15k and CT abdomen showed acute appendicitis. He was seen by surgery and patient to be admitted for appendectomy and supportive care. Home Meds Active Scripts Azithromycin (Zithromax) 1 Gm Pow, 1 PACK PO ONCE, #1 PACK Prov:ANIYA WOLFF MD 08/04/23 Omeprazole (HM OMEPRAZOLE) 20 Mg Tab, 20 MG PO BID for 60 Days, #120 TAB 0 Refills Prov:FRANCISCO NGUYEN TUBE CUTTER OPERATOR 07/29/23 Albuterol Sulfate (Albuterol Sulfate Hfa) 108 Mcg/Act Aer, 108 MCG IN TID, #90 AER Prov:LEO BROWN 07/09/23 Promethazine-Dm (Promethazine Dm 6.25-15 mg/5Ml) 1 Jocelyne Jocelyne, 5 ML PO TID, #180 ML Prov:LEO BROWN 07/09/23 Levofloxacin Hemihydrate (LEVAQUIN 500 MG) 500 Mg Tab, 1 TAB PO DAILY, #10 TAB Prov:LEO BROWN 07/09/23 Albuterol Sulfate (VENTOLIN MDI) 90 Mcg Ih, 90 MCG IN TID for 30 Days, #1 INH Prov:SCAR CORDERO MD 07/10/22 Dextromethorphan-Guaifenesin (Robitussin-Dm) 10 Ml Sr, 10 ML PO TID for 10 Days, #300 SYP Prov:SCAR CORDERO MD 07/10/22 Prednisone (Prednisone) 20 Mg Tab, 20 MG PO BID for 5 Days, #10 MG Prov:SCAR CORDERO MD 07/10/22 Azithromycin (Zithromax) 500 Mg Tab, 1 TAB PO DAILY for 5 Days, #5 TAB Prov:SCAR CORDERO MD 07/10/22 Past Medical History Cardiac: HTN GI: GERD Endocrine: NIDDM Review of Systems Constitutional: No symptom reported Cardiovascular: No symptom reported Gastrointestinal: Nausea, Vomiting, Abdominal Pain H&P Exam Vital Signs Vital Signs Date Time Temp Pulse Resp B/P (MAP) Pulse Ox O2 Delivery O2 Flow Rate FiO2 04/05/25 11:15 Room Air* 0 21 04/05/25 09:33 84 18 95 04/05/25 09:33 98.6 135/84 (101) 98.6 General Appeara: Well developed Neck Exam: Normal inspection Pulmonary/Respiratory: Normal inspection, Decreased breath sounds Cardiovascular/Chest: Regular rate Abdominal Pain Onset Location: RLQ, Epigastric SEPSIS Sepsis Screen Date sepsis recognized/suspect: Apr 05, 2025 Time Sepsis recognized/suspect: 602 Recent Procedure: No On Antibiotic Therapy: No Respiratory Rate >20: No Heart Rate >90: No Temp<36 C (96.8 F) or >38.3 C: No SBP <90 or MAP <65 mmHG: No New Acute Mental Status Change: No Is the patient on CPAP, BIPAP,: No Physician Orders Blood Culture (04/05/25 08:37) * Surgical Consult (04/05/25 ) Chest Xray 1 View (04/05/25 13:56) Electrocardigram (04/05/25 13:56) PTPTT (04/05/25 13:56) Admit (04/05/25 14:22) Nitroglycerin Sublingual (Ntrostat Subli (04/05/25 14:30) Morphine Sulfate Injection (04/05/25 14:30) Stat Ekg For Chest Pain (04/05/25 14:22) Notify Md Of Changes From Base (04/05/25 14:22) Sweat Band Sewer For 24 Hours (04/05/25 14:22) Emergency Dysrhythmia Protocol (04/05/25 14:22) Rhythm Strips Once Every Shift (04/05/25 14:22) Oxygen By Nasal Cannula (04/05/25 14:22) Npo (Nothing By Mouth) Diet (04/05/25 Dinner) Sequential Compression Device (04/05/25 14:22) * Surgical Consult (04/05/25 ) Piperacillin-Tazob 3.375gm (Zosyn 3.375g (04/05/25 14:30) Sodium Chloride 0.9% (04/05/25 14:30) Sodium Chloride 0.9% (04/05/25 14:30) Morphine Sulfate Injection (04/05/25 14:30) Ondansetron Hcl (Zofran) (04/05/25 14:30) Obtain Consent For: (04/05/25 14:48) Obtain Consent For Anesthesia (04/05/25 14:48) Type And Screen (04/05/25 14:51) Vital Signs Date Time Temp Pulse Resp B/P (MAP) Pulse Ox O2 Delivery O2 Flow Rate FiO2 04/05/25 11:15 Room Air* 0 21 04/05/25 09:33 84 18 95 Room Air 04/05/25 09:33 98.6 84 16 135/84 (101) 95 98.6 Laboratory Tests Test 04/05/25 06:38 04/05/25 08:59 White Blood Count 15.5 10^3/uL (4.4-10.8) H Lactic Acid Level 1.0 mmol/L (0.4-2.0) Medications Medications Dose Ordered Sig/Sarah Route Start Time Stop Time Status Last Admin Dose Admin Cefazolin Sodium 50 ml @ 100 mls/hr ONCE ONCE IV 04/05/25 08:45 04/05/25 09:14 DC 04/05/25 11:15 100 MLS/HR Metronidazole 100 ml @ 100 mls/hr ONCE ONCE IV 04/05/25 08:45 04/05/25 09:44 DC 04/05/25 09:56 100 MLS/HR Sodium Chloride 1,000 ml @ 1,000 mls/hr Q1H ONCE IV 04/05/25 14:30 04/05/25 15:29 04/05/25 14:38 1,000 MLS/HR Labs/Xrays Labs Test 04/05/25 14:44 04/05/25 08:59 04/05/25 06:54 04/05/25 06:38 Range/Units Lactic Acid Level 1.0 0.4-2.0 mmol/L Urine Color Light-yellow Yellow Urine Clarity Clear Clear Urine pH 7.0 5.0-9.0 Urine Specific Sage 1.022 1.001-1.035 Urine Protein Negative Negative Urine Ketones Negative Negative Urine Blood Negative Negative /uL Urine Nitrite Negative Negative Urine Bilirubin Negative Negative Urine Urobilinogen Normal Negative mg/dL Urine Leukocyte Esterase Negative Negative /uL Urine RBC 1 0 - 3 /hpf Urine Microscopic WBC < 1 0-3 /HPF Urine Squamous Epithelial Cells Few <5 /hpf Urine Bacteria None seen None Seen /hpf Urine Glucose 4+ H Normal mg/dL White Blood Count 15.5 H 4.4-10.8 10^3/uL Red Blood Count 5.10 4.5-5.90 10^6/uL Hemoglobin 16.9 13.5-17.5 g/dL Hematocrit 47.4 41.0-53.0 % Mean Corpuscular Volume 92.9 80.0-100.0 fL Mean Corpuscular Hemoglobin 33.2 H 28.0-32.0 pg Mean Corpuscular Hemoglobin Concent 35.7 32.0-36.0 g/dL Red Cell Distribution Width 13.6 11.8-14.3 % Platelet Count 179 140-450 10^3/uL Mean Platelet Volume 8.7 6.9-10.8 fL Neutrophils (%) (Auto) 80.7 H 37.0-80.0 % Lymphocytes (%) (Auto) 11.4 10.0-50.0 % Monocytes (%) (Auto) 5.6 0.0-12.0 % Eosinophils (%) (Auto) 1.4 0.0-7.0 % Basophils (%) (Auto) 0.9 0.0-2.0 % Neutrophils # (Auto) 12.5 H 1.6-8.6 10 ^3/uL Lymphocytes # (Auto) 1.8 0.4-5.4 10 ^3/uL Monocytes # (Auto) 0.9 0-1.3 10 ^3/uL Eosinophils # (Auto) 0.2 0-0.8 10 ^3/uL Basophils # (Auto) 0.1 0-0.2 10 ^3/uL Nucleated Red Blood Cells 0.1 % Sodium Level 140 136-145 mmol/L Potassium Level 4.1 3.5-5.1 mmol/L Chloride Level 107 98-107 mmol/L Carbon Dioxide Level 25 20-31 mmol/L Anion Gap 8 5-15 Blood Urea Nitrogen 10 9-23 mg/dL Creatinine 0.84 0.700-1.30 mg/dL Glomerular Filtration Rate Calc 94 >90 mL/min BUN/Creatinine Ratio 11.9 10.0-20.0 Serum Glucose 109 H 74-106 mg/dL Calcium Level 9.7 8.7-10.4 mg/dL Assessment/Plan Primary Diagnosis 1) Acute appendicitis 2) DM 3) HTN 4) GERD plan; admit medsurg, NPO, IV abx, surgical consult, preop labs and testing, an tiemetics/pain control, daily labs Plan discussed with: Other (n) MATTHEW TELLEZ MD Apr 05, 2025 15:19
[2025-04-05 15:22] LABS: INR 1.03 (0.9-1.15); Partial Thromboplastin Time 31.4 SEC (24.5-34.5); Prothrombin Time 10.9 sec (9.3-11.8)
--- NOTE | 2025-04-05 15:34 | DVHINCON2 ---
DATE OF CONSULTATION: 04/05/2025 HISTORY OF PRESENT ILLNESS: A 69 years old, comes in with right lower quadrant pain started yesterday, some nausea. No vomiting. No constipation or diarrhea. No hematemesis or melena. No bleeding per rectum. PAST MEDICAL HISTORY: Hypertension and diabetes. PAST SURGICAL HISTORY: Left arm surgery and back surgery. PHYSICAL EXAMINATION: VITAL SIGNS: Afebrile. Stable signs. HEENT: With no evidence of pallor, cyanosis, or jaundice. NECK: Supple and nontender, with no thyromegaly or lymphadenopathy. CHEST AND LUNGS: Clear. HEART: Within normal limits. ABDOMEN: Soft, tender in the right lower quadrant with no evidence of rebound. EXTREMITIES: Unremarkable. NEUROLOGIC: Intact. CLINICAL IMPRESSION: Acute appendicitis. CT scan is confirming. PLAN: Plan is to do laparoscopic possible open appendectomy. Benefits and risks discussed and a consent obtained. MD SWETA Interiano/BLOSSOM/ADILENE TID: [id number] RECEIPT: [id number] cc:
[2025-04-05] MEDS ORDERED: HYDROmorphone HCL 2 MG/ML VL/or syr ONE (16:18)
[2025-04-05] MEDS: SUCCINYLCHOLINE CHLORIDE 20 MG/ML 10ML VIAL IV ONE (16:25)
[2025-04-05] MEDS ORDERED: ROCURONIUM 10MG/ML 10ML VIAL IV ONE (16:48)
[2025-04-05] MEDS: BUPIVACAINE 0.25% INJ 50ML VIAL ONE (17:04)
[2025-04-05] MEDS ORDERED: PROPOFOL 10 MG/ML 20 ML IV ONE (17:38)
[2025-04-05] MEDS ORDERED: SUGAMMADEX 200mg/2ml Vial (100MG/ML) IV ONE (17:38)
[2025-04-05 17:46] VITALS: RESP 16; O2SAT 97
--- NOTE | 2025-04-05 17:47 | DVHOP2 ---
Operative Report [id number] AC APPENDICITIS PELVIC ADHESIONS LAP MICHAEL AND LAP APPENDECTOMY EBL 5 CC NO DRAINS NO COMPLICATIONS STABLE TRANSFER TO RECOVERY ROOM EDGARD BARTLETT MD Apr 05, 2025 17:47
[2025-04-05] MEDS ORDERED: ONDANSETRON HCL 4 MG/2 ML VIAL IV ONE (18:00)
[2025-04-05] MEDS: PIPERACILLIN-TAZOB 3.375GM 100 ML IV SCH (18:00)
[2025-04-05] MEDS ORDERED: ACETAMINOPHEN IV 1000 MG/100ML (10MG/ML) IV PRN (18:00)
[2025-04-05] MEDS ORDERED: hydrALAZINE HCL 20 MG/ML VL IV PRN (18:00)
[2025-04-05] MEDS ORDERED: MEPERIDINE HCL (25 MG/ML) 1ML VIAL IV PRN (18:00)
[2025-04-05] MEDS ORDERED: HYDROmorphone HCL 2 MG/ML VL/or syr IV PRN (18:00)
[2025-04-05] MEDS ORDERED: METOCLOPRAMIDE HCL 5MG/ml INJ 2ml VIAL IV ONE (18:00)
[2025-04-05 19:01] VITALS: PULSE 81; RESP 14; O2SAT 95
--- NOTE | 2025-04-05 19:13 | DVHOP ---
DATE OF SURGERY: 04/05/2025 PREOPERATIVE DIAGNOSIS: Acute appendicitis with dense adhesions. POSTOPERATIVE DIAGNOSIS: Acute appendicitis with dense adhesions. PROCEDURE: Laparoscopic lysis of adhesions and laparoscopic appendectomy. SURGEON: Herve Donald MD. DIRECTOR TRADE: None. ANESTHESIA: General. ESTIMATED BLOOD LOSS: Close to 5 mL. DRAINS: No drains were used. COMPLICATIONS: No complications were encountered. DESCRIPTION OF PROCEDURE: The patient was prepped and draped in the usual sterile fashion. In the supine position, a supraumbilical incision was applied and was taken down to the fascia. The Veress needle was introduced and CO2 insufflation was started at a pressure of 15 mmHg. The needle was withdrawn and replaced by the 12 mm trocar and the telescope was introduced and the patient was placed in the Trendelenburg and right upper lateral position. The appendix was found to be acutely inflamed and the tip was in the retroperitoneal location behind the ileocecal junction. Two 5 mm ports were applied more inferiorly, one above the symphysis, the third midway between the upper two. The camera was moved to the lowermost 5 mm port. The upper two ports were used to surgery. After the adhesions were taken down using the Harmonic device, making sure that the bowel was kept out of harm's way at all times and then the mesoappendix was stripped at the base and divided distal to that using the Harmonic device. The base of the appendix was cleared for transection using the Endo SHOBHA stapling device. The appendix released in this fashion was retrieved from the supraumbilical wound in an EndoCatch bag without any complication. Hemostasis was secured. Irrigation fluid was removed. The ports sites are free from bleeding. EndoClose suture was used for the fascial closure of the supraumbilical wound. All the trocars were withdrawn after all the CO2 had been let out and the patient was placed in supine, the wounds were then brought together using 3-0 Monocryl suture in a subcuticular fashion. Surgical glue was applied. The patient tolerated the procedure well and was taken back to recovery room in stable condition. Herve Donald MD RG/RUB TID: [id number] RECEIPT: [id number] cc: Pee Prabhakar MD
[2025-04-05 21:00] VITALS: BP 134/80; PULSE 77; RESP 16; TEMP 98.2; O2SAT 95
[2025-04-05] MEDS ORDERED: METF-370 PO (21:14)
[2025-04-05] MEDS ORDERED: EMPA1TAB PO (21:14)
[2025-04-05] MEDS: SODIUM CHLORIDE 0.9% 1,000 ML IV SCH (21:41)
[2025-04-06 01:00] VITALS: BP 126/76; PULSE 78; RESP 14; TEMP 97.5; O2SAT 90
[2025-04-06] MEDS: HYDROmorphone HCL 2 MG/ML VL/or syr IV PRN (04:59)
[2025-04-06 05:00] VITALS: BP 151/91; PULSE 84; RESP 16; TEMP 98.1; O2SAT 93
[2025-04-06 07:32] LABS: Hematocrit 43.6 % (41.0-53.0); Hemoglobin 15.3 g/dL (13.5-17.5); Mean Corpuscular Hemoglobin 33.3 pg (28.0-32.0); Mean Corpuscular Volume 94.8 fL (80.0-100.0); Nucleated Red Blood Cells % 0.0 %
[2025-04-06] MEDS ORDERED: METR-344 PO (07:32)
[2025-04-06] MEDS ORDERED: LEVO500T91 PO (07:32)
--- NOTE | 2025-04-06 07:32 | DVHDS2 ---
MATTHEW TELLEZ MD 04/06/25 0732: New Physician D'charge PN Admitting Diagnosis Admitting Diagnosis appendicitis Discharge Diagnosis appendicitis s/p lap appy Operations or Procedures none Reason(s) For Hospitalization Surgery Hospital Course 69 M who comes to ER c/o RLQ pain. His initial Ct abdomen noted to show appendicitis. He was admitted to hospital and kept NPO and started on IV ABx. Surgery saw him and he underwent laparoscopic appendectomy with lysis of adhesions. This is post-op day 1 and his diet has been advanced. There were no complications pre or post-op. Once cleared by surgery today patient to [place] with outpt follow up via [facility]. Treatment Plan Discharge Condition of Discharge Good Disposition Home Discharge Instructions Diet: Cardiac 2g Na,low cholest Activity: No Restrictions, As Tolerated Medications: see med sheet New Medications: Levofloxacin Hemihydrate (Levaquin 500 Mg) 500 Mg Tab 1 TAB PO DAILY, #10 TAB Metronidazole (Flagyl) 500 Mg Tab 1 TAB PO TID, #30 TAB Continued Medications: Albuterol Sulfate (Ventolin Mdi) 90 Mcg Ih 90 MCG IN TID for 30 Days, #1 INH Albuterol Sulfate (Albuterol Sulfate Hfa) 108 Mcg/Act Aer 108 MCG IN TID, #90 AER Empagliflozin (Jardiance) 10 Mg Tab 10 MG PO, TAB Metformin Hydrochloride (Metformin Hcl) 500 Mg Tab 1 TAB PO BID, #60 TAB 3 Refills Follow Up Care Follow Up/Referral: pcp surgery Discharge Statement: "Patient was advised to return to the ER or call 911 if any headaches, dizziness, shortness of breath, chest pain, abdominal pain, bleeding, fevers, or worsening of medical condition. Patient was counseled about treatment plan, medications, possible side effects, patientverbalized understanding. All questions were answered to the best of my ability. This discharge took greater then 30 minutes in planning, reviewing documentation, counseling the patient, and discussing with other team members." GILMA GARRIDO MD 04/07/251948: New Physician D'charge PN Admitting Diagnosis Admitting Diagnosis 69 M who comes to ER for abd pain. His WBC was 15k and CT abdomen showed acute appendicitis. He was seen by surgery and patient to be admitted for appendectomy and supportive care. Discharge Diagnosis acute appendicitis s/p appendectomy Operations or Procedures DATE OF SURGERY: 04/05/2025 PREOPERATIVE DIAGNOSIS: Acute appendicitis with dense adhesions. POSTOPERATIVE DIAGNOSIS: Acute appendicitis with dense adhesions. PROCEDURE: Laparoscopic lysis of adhesions and laparoscopic appendectomy. SURGEON: Herve Donald MD. GAS REVERSER: None. ANESTHESIA: General. ESTIMATED BLOOD LOSS: Close to 5 mL. DRAINS: No drains were used. COMPLICATIONS: No complications were encountered. DESCRIPTION OF PROCEDURE: The patient was prepped and draped in the usual sterile fashion. In the supine position, a supraumbilical incision was applied and was taken down to the fascia. The Veress needle was introduced and CO2 insufflation was started at a pressure of 15 mmHg. The needle was withdrawn and replaced by the 12 mm trocar and the telescope was introduced and the patient was placed in the Trendelenburg and right upper lateral position. The appendix was found to be acutely inflamed and the tip was in the retroperitoneal location behind the ileocecal junction. Two 5 mm ports were applied more inferiorly, one above the symphysis, the third midway between the upper two. The camera was moved to the lowermost 5 mm port. The upper two ports were used to surgery. After the adhesions were taken down using the Harmonic device, making sure that the bowel was kept out of harm's way at all times and then the mesoappendix was stripped at the base and divided distal to that using the Harmonic device. The base of the appendix was cleared for transection using the Endo SHOBHA stapling device. The appendix released in this fashion was retrieved from the supraumbilical wound in an EndoCatch bag without any complication. Hemostasis was secured. Irrigation fluid was removed. The ports sites are free from bleeding. EndoClose suture was used for the fascial closure of the supraumbilical wound. All the trocars were withdrawn after all the CO2 had been let out and the patient was placed in supine, the wounds were then brought together using 3-0 Monocryl suture in a subcuticular fashion. Surgical glue was applied. The patient tolerated the procedure well and was taken back to recovery room in stable condition. Herve Donald MD RG/RUB Hospital Course He is admitted and evaluated by general surgeon had a successful laparoscopic appendectomy. Postop patient is re-evaluated general surgeon. Patient is tolerated diet today. Passing flatus. Abdominal pain is improved. Therefore surgeon felt he could be safely discharged home today. I have talked with the patient along with the family at bedside earlier today regarding his care plan. They have verbalized understanding of this and agreed to follow up outpatient with the PCP and surgeon in the next 1-2 weeks. Condition of Discharge Stable Disposition Home Discharge Instructions Diet: Cardiac 2g Na,low cholest Activity: No Restrictions, As Tolerated New Medications: Levofloxacin Hemihydrate (Levaquin 500 Mg) 500 Mg Tab 1 TAB PO DAILY, #10 TAB Metronidazole (Flagyl) 500 Mg Tab 1 TAB PO TID, #30 TAB Continued Medications: Albuterol Sulfate (Ventolin Mdi) 90 Mcg Ih 90 MCG IN TID for 30 Days, #1 INH Albuterol Sulfate (Albuterol Sulfate Hfa) 108 Mcg/Act Aer 108 MCG IN TID, #90 AER Empagliflozin (Jardiance) 10 Mg Tab 10 MG PO, TAB Metformin Hydrochloride (Metformin Hcl) 500 Mg Tab 1 TAB PO BID, #60 TAB 3 Refills MATTHEW TELLEZ MD Apr 06, 2025 07:32 GILMA GARRIDO MD Apr 07, 2025 19:49
[2025-04-06 07:51] LABS: Alanine Aminotransferase 35 U/L (7-40); Albumin 4.7 g/dL (3.2-4.8); Alkaline Phosphatase 50 U/L (46-116); Anion Gap 9 (5-15); BUN/Creatinine Ratio 13.1 (10.0-20.0); Blood Urea Nitrogen 11 mg/dL (9-23); Calcium 9.1 mg/dL (8.7-10.4); Carbon Dioxide 23 mmol/L (20-31); Chloride 106 mmol/L (98-107); Glucose 84 mg/dL (74-106); Potassium 4.0 mmol/L (3.5-5.1); Sodium 138 mmol/L (136-145); Total Protein 6.9 g/dL (5.7-8.2)
[2025-04-06 08:00] LABS: Bilirubin, Total 1.3 mg/dL (0.2-1.0)
[2025-04-06 09:00] VITALS: BP 132/77; PULSE 78; RESP 17; TEMP 98
[2025-04-06 13:00] VITALS: BP 148/89; PULSE 78; RESP 16; TEMP 97.5; O2SAT 97
--- NOTE | 2025-04-06 15:20 | DVHPN2 ---
Progress Note Date Seen: Apr 06, 2025 Medical Necessity Reason Pt with a Central, PICC or Fol: No Objective vital signs Vital Sign Date Time Temp Pulse Resp B/P (MAP) Pulse Ox O2 Delivery O2 Flow Rate FiO2 04/06/25 09:00 98.0 78 17 132/77 (95) 98.0 04/06/25 08:11 Nasal Cannula* 2 28 04/06/25 05:00 93 Total Intake and Output 04/05/25 04/05/25 04/06/25 15:00 23:00 07:00 Intake Total 150 ml 900 ml Output Total 790 ml Balance 150 ml 110 ml medications Current Medications Medications Dose Ordered Sig/Sarah Route Start Time Stop Time Status Last Admin Dose Admin Nitroglycerin 0.4 mg Q5MINP PRN SL 04/05/25 14:30 Morphine Sulfate 2 mg Q30M PRN IV 04/05/25 14:30 Piperacillin Sod/ Tazobactam Sod 100 ml @ 100 mls/hr Q6HR IV 04/05/25 14:30 04/06/25 14:44 100 MLS/HR Sodium Chloride 1,000 ml @ 100 mls/hr Q10H IV 04/05/25 14:30 04/06/25 14:43 100 MLS/HR Ondansetron HCl 4 mg Q4HP PRN IV 04/05/25 14:30 Hydromorphone HCl 0.5 mg Q4HPRN PRN IV 04/05/25 19:15 04/06/25 04:59 0.5 MG Acetaminophen/ Hydrocodone Bitart 1 tab Q4HP PRN PO 04/06/25 15:15 UNV laboratory and microbiology Laboratory Tests 04/06/25 06:45 Test 04/06/25 06:45 Range/Units Serum Glucose 84 74-106 mg/dL Microbiology Date/Time Source Procedure Growth Status 04/05/25 08:59 Blood Blood Culture - Preliminary NO GROWTH AFTER 24 HOURS OF INCUBATION. Resulted Problem List/Assessment/Plan Problem List/Assessment/Plan AFEBRILE VSS ABD LESS DISTENDED NO BM NO FLATUS ON NASAL O2 FO SATS ABOVE 95% HOLD DIET ALLOW SIPS OF WATER CLOSE OBSERVATION Plan discussed with: Patient My Orders My Orders Orders - EDGARD BARTLETT MD Procedure Category Date Status Time Hydromorphone PHA 04/05/25 In Process Injection (Dilaudid 19:15 Npo (Nothing By DIET 04/06/25 Transmitted Mouth) Diet Lunch EDGARD BARTLETT MD Apr 06, 2025 15:20
[2025-04-06] MEDS: HYDROcodone-ACET 10/325MG TAB PO PRN (15:42)
[2025-04-06 16:30] VITALS: BP 151/86; PULSE 80; RESP 17; TEMP 98.1; O2SAT 94
[2025-04-06 21:00] VITALS: BP 147/89; PULSE 74; RESP 16; TEMP 97.5; O2SAT 96
[2025-04-07 01:00] VITALS: BP 147/91; PULSE 76; RESP 16; TEMP 98.1; O2SAT 96
[2025-04-07 05:00] VITALS: BP 155/92; PULSE 78; RESP 16; TEMP 98.4; O2SAT 95
--- NOTE | 2025-04-07 07:27 | ECG ---
[facility] Test Date: 2025-04-05 Test Time: 14:54:26 Pat Name: SIMIN FOFANA Department: Room: 0251 B Gender: M [facility] Nurse Practitioner: PAVITHRA : 1955 Requested By: EDGARD BARTLETT Order Number: [id number] Reading MD: Cesar Cartagena Measurements Intervals Speed Rate: 84 P: 39 VA: 140 QRS: 4 QRSD: 86 T: 39 QT: 404 QTc: 477 Interpretive Statements Normal sinus rhythm Electronically Signed On 04-11-2025 18:31:28 PDT by Cesar Cartagena Please click the below link to view image of tracing.
[2025-04-07 08:30] VITALS: BP 141/85; PULSE 78; RESP 16; TEMP 97.7; O2SAT 96
[2025-04-07 13:03] VITALS: BP 150/88; PULSE 81; RESP 16; TEMP 97.4; O2SAT 96
--- NOTE | 2025-04-07 16:24 | DVHPN2 ---
Progress Note Date Seen: Apr 07, 2025 Medical Necessity Reason Pt with a Central, PICC or Fol: No Objective vital signs Vital Sign Date Time Temp Pulse Resp B/P (MAP) Pulse Ox O2 Delivery O2 Flow Rate FiO2 04/07/25 13:03 97.4 81 16 150/88 (108) 96 97.4 04/07/25 08:00 Nasal Cannula* 2 28 Total Intake and Output 04/06/25 04/06/25 04/07/25 15:00 23:00 07:00 Intake Total 200 ml 900 ml Output Total 600 ml 775 ml Balance -400 ml 125 ml medications Current Medications Medications Dose Ordered Sig/Sarah Route Start Time Stop Time Status Last Admin Dose Admin Nitroglycerin 0.4 mg Q5MINP PRN SL 04/05/25 14:30 Morphine Sulfate 2 mg Q30M PRN IV 04/05/25 14:30 Piperacillin Sod/ Tazobactam Sod 100 ml @ 100 mls/hr Q6HR IV 04/05/25 14:30 04/07/25 10:23 100 MLS/HR Ondansetron HCl 4 mg Q4HP PRN IV 04/05/25 14:30 Hydromorphone HCl 0.5 mg Q4HPRN PRN IV 04/05/25 19:15 04/06/25 04:59 0.5 MG Acetaminophen/ Hydrocodone Bitart 1 tab Q4HP PRN PO 04/06/25 15:15 04/07/25 10:24 1 TAB laboratory and microbiology Laboratory Tests 04/06/25 06:45 Test 04/06/25 06:45 Range/Units Serum Glucose 84 74-106 mg/dL Microbiology Date/Time Source Procedure Growth Status 04/05/25 08:59 Blood Blood Culture - Preliminary NO GROWTH AFTER 48 HOURS OF INCUBATION. Resulted Problem List/Assessment/Plan Problem List/Assessment/Plan AFEBRILE VSS ABD LESS DISTENDED FLATUS + ON ROOM AIR [place] DIET NO COMPLICATIONS AMBULATING CLEARED FOR DISCHARGE INSTRUCTIONS RE DIET ACTIVITY F/UP GIVEN NURSE AT BEDSIDE Plan discussed with: Patient EDGARD BARTLETT MD Apr 07, 2025 16:24
[2025-04-07 16:53] VITALS: BP 138/88; PULSE 71; RESP 16; TEMP 98.2; O2SAT 95
[2025-04-07 21:00] VITALS: BP 134/90; PULSE 79; RESP 20; TEMP 98.7; O2SAT 96
== END 2025-04-07 20:55 | disposition home or self-care (01) | DRG 337 ==
LOC: ER 05:51 → OVERFLOW 14:22 → EAST 19:08
PROVIDERS: ADMIT Internal Medicine; ATTEND Internal Medicine
PROC: 0DTJ4ZZ Resection of Appendix, Percutaneous Endoscopic Approach (ICD-10-PCS; 2025-04-05)
PROC: 0DNJ4ZZ Release Appendix, Percutaneous Endoscopic Approach (ICD-10-PCS; principal; 2025-04-05 16:35)
DX: K35.80 Unspecified acute appendicitis (principal); E11.9 Type 2 diabetes mellitus without complications; I10 Essential (primary) hypertension; K76.0 Fatty (change of) liver, not elsewhere classified; K21.9 Gastro-esophageal reflux disease without esophagitis; K66.0 Peritoneal adhesions (postprocedural) (postinfection); Z79.84 Long term (current) use of oral hypoglycemic drugs; F17.210 Nicotine dependence, cigarettes, uncomplicated
CPT/HCPCS: 36415; 71045; 74176; 80048; 80053; 81001; 83605; 85025; 85610; 85730; 86850; 86900; 86901; 87040; 93005; 96365; 99291; 99292; G0378; J0330; J1100; J2250; J2405; J2543; J2704; J3490